=== PATIENT | male | born 1945 | race Caucasian/White ===

== ENCOUNTER 2016-11-09 10:01 | Inpatient (IN) | payer BC ==
[~2016-11-09] VITALS: Ht 170.2 cm; Wt 108.1 kg
[2016-11-09 10:09] VITALS: BP 146/63; PULSE 74; RESP 20; TEMP 97.9; O2SAT 97
[2016-11-09] MEDS ORDERED: SODIUM CHLORIDE 0.9% FLUSH 10 ML FLUSH IVF PRN (10:45)
--- NOTE | 2016-11-09 10:55 | PD ---
HPI Chief Complaint: Fall Time Seen by Provider: 10:18 Travel History International Travel<30 days: No Contact w/Intl Traveler<30days: No Traveled to known affect area: No History of Present Illness HPI Patient reports that he noticed at 5 AM when he woke up that he had some weakness and discoordination of the right arm and right leg. He denies numbness or paresthesia. No speech slurring. He reports history of CVA causing short term memory loss. He was able to ambulate in his house but when he went to sit down in a recliner he ended up slumping down to the ground. No head injury. No head or neck pain. He did hit his left lower rib cage and has rib pain. There is been some improvement of the arm and leg weakness but he still feels that is mild and present. Severity was moderate but now is mild. No alleviating factors. Duration is unknown but occurred sometime during the night. Does not qualify for stroke alert or TPA. PFSH Past Medical History Atrial Fibrillation: Yes Anxiety: Yes High Cholesterol: Yes Cerebrovascular Accident: Yes Diabetes: Yes Patient Takes Glucophage: Yes Diminished Hearing: Yes Hypertension: Yes Tetanus Vaccination: > 5 Years Influenza Vaccination: Yes Past Surgical History Eye Surgery: Yes (JONNIE CATARACT) Social History Alcohol Use: No Tobacco Use: No Substance Use: No Allergies-Medications (Allergen,Severity, Reaction): Coded Allergies: No Known Allergies (Unverified , 11/09/16) Reported Meds & Prescriptions Reported Meds & Active Scripts Active Reported Jennifer Root (Jennifer (Zingiber Officinalis)) 550 Mg Cap 550 Mg PO DAILY Ferrous Sulfate 325 Mg Tab 325 Mg PO DAILY [Multivitamin Silver] 1 PO DAILY Victoza Inj (Liraglutide Inj) 18 Mg/3 Ml Pen 0.6 Mg SQ DAILY Jardiance (Empagliflozin) 25 Mg Tab 25 Mg PO DAILY Digoxin 0.25 Mg Tab 0.25 Mg PO DAILY Sertraline (Sertraline HCl) 100 Mg Tab 100 Mg PO DAILY Glipizide XL (Glipizide) 5 Mg Hilary 5 Mg PO DAILY Take with breakfast or first main meal of the day Atenolol 25 Mg Tab 25 Mg PO DAILY Metformin (Metformin HCl) 1,000 Mg Tab 1,000 Mg PO BID With meals Donepezil 10 Mg Tab 10 Mg PO HS Lyrica (Pregabalin) 100 Mg Cap 100 Mg PO Lyrica (Pregabalin) 150 Mg Cap 150 Mg PO Atorvastatin (Atorvastatin Calcium) 40 Mg Tab 40 Mg PO HS Review of Systems General / Constitutional: No: Fever Eyes: No: Visual changes HENT: No: Headaches Cardiovascular: Positive: Irregular Rhythm, No: Chest Pain or Discomfort Respiratory: No: Shortness of Breath Gastrointestinal: No: Abdominal Pain Genitourinary: No: Dysuria Musculoskeletal: Positive: Weakness, Pain Skin: No Rash Neurologic: Positive: Weakness, Coordination Problem Psychiatric: No: Depression Endocrine: No: Polydipsia Hematologic/Lymphatic: No: Easy Bruising Physical Exam Narrative GENERAL: Well-nourished, well-developed patient in no apparent distress. SKIN: Focused skin assessment reveals no rash and nodules. Skin is Warm and dry. HEAD: Atraumatic. Normocephalic. EYES: Pupils equal and round. No scleral icterus. No injection or drainage. ENT: No nasal bleeding or discharge. Mucous membranes pink and moist. NECK: Trachea midline. No JVD. CARDIOVASCULAR: Irregularly irregular rhythm. No murmur appreciated. RESPIRATORY: No accessory muscle use. Clear to auscultation. Breath sounds equal bilaterally. GASTROINTESTINAL: Abdomen soft, non-tender, nondistended. Hepatic and splenic margins not palpable. MUSCULOSKELETAL: No obvious deformities. No clubbing. No cyanosis. No edema. NEUROLOGICAL: Awake and alert. No obvious cranial nerve deficits. Motor grossly within normal limits. Normal speech. If there is any motor weakness it is subtle. PSYCHIATRIC: Appropriate mood and affect; insight and judgment normal. Data Data Last Documented VS Vital Signs Date Time Temp Pulse Resp B/P Pulse Ox O2 Delivery O2 Flow Rate FiO2 11/09/16 12:02 63 20 152/76 93 Room Air 11/09/16 10:09 97.9 Orders Electrocardiogram (11/09/16 10:45) Prothrombin Time / Inr (Pt) (11/09/16 10:45) Act Partial Throm Time (Ptt) (11/09/16 10:45) Complete Blood Count With Diff (11/09/16 10:45) Basic Metabolic Panel (Bmp) (11/09/16 10:45) Ct Brain W/O Iv Contrast(Rout) (11/09/16 10:45) Chest, Single Ap (11/09/16 10:45) Ecg Monitoring (11/09/16 10:45) Iv Access Insert/Monitor (11/09/16 10:45) Oximetry (11/09/16 10:45) Blood Glucose (11/09/16 10:45) Sodium Chloride 0.9% Flush (Ns Flush) (11/09/16 10:45) Labs Laboratory Tests Test 11/09/16 11:11 White Blood Count 8.4 TH/MM3 Red Blood Count 5.13 MIL/MM3 Hemoglobin 14.2 GM/DL Hematocrit 43.6 % Mean Corpuscular Volume 85.0 FL Mean Corpuscular Hemoglobin 27.7 PG Mean Corpuscular Hemoglobin 32.6 % Concent Red Cell Distribution Width 15.0 % Platelet Count 161 TH/MM3 Mean Platelet Volume 11.3 FL Neutrophils (%) (Auto) 68.9 % Lymphocytes (%) (Auto) 18.4 % Monocytes (%) (Auto) 9.5 % Eosinophils (%) (Auto) 2.6 % Basophils (%) (Auto) 0.6 % Neutrophils # (Auto) 5.8 TH/MM3 Lymphocytes # (Auto) 1.5 TH/MM3 Monocytes # (Auto) 0.8 TH/MM3 Eosinophils # (Auto) 0.2 TH/MM3 Basophils # (Auto) 0.1 TH/MM3 CBC Comment DIFF FINAL Differential Comment Prothrombin Time 12.5 SEC Prothromb Time International 1.1 RATIO Ratio Activated Partial 26.8 SEC Thromboplast Time Sodium Level 142 MEQ/L Potassium Level 5.1 MEQ/L Chloride Level 106 MEQ/L Carbon Dioxide Level 28.1 MEQ/L Anion Gap 8 MEQ/L Blood Urea Nitrogen 19 MG/DL Creatinine 0.87 MG/DL Estimat Glomerular Filtration 87 ML/MIN Rate Random Glucose 175 MG/DL Calcium Level 9.1 MG/DL [facility] Medical Decision Making Medical Screen Exam Complete: Yes Emergency Medical Condition: Yes Medical Record Reviewed: Yes Differential Diagnosis CVA, TIA, rib contusion Narrative Course I have reviewed the patient's electronic medical record. Patient is never been here before Patient describes CVA/TIA type of symptoms with right sided weakness and discoordination. He presents out of the window for TPA or stroke alert as he woke up with these symptoms. He does have history of A. fib and is not sure if he takes any blood thinners. Neither he nor his home health aide know his medication list. IV placed Brain CT I reviewed his chest x-ray I reviewed his EKG Extended cardiac monitoring CBC Metabolic profile Coagulation studies Bari Sun MD November 09, 2016 10:55
--- NOTE | 2016-11-09 11:10 | RADRPT ---
EXAM DATE/TIME: 11/09/2016 10:46 [facility] COMPARISON: No previous studies available for comparison. INDICATIONS : Fell on floor pain left ribs. MEDICAL HISTORY : Stroke. Diabetes mellitus type I. SURGICAL HISTORY : None. ENCOUNTER: Initial ACUITY: 1 day PAIN SCORE: 7/10 LOCATION: Left chest FINDINGS: A single view of the chest demonstrates the lungs to be symmetrically aerated without evidence of mas s, infiltrate or effusion. The heart is mildly enlarged. Pulmonary vessels are normal in caliber. Ol d trauma involving the left proximal humerus. Bony structures are otherwise unremarkable. CONCLUSION: 1. Mild cardiomegaly without acute cardiopulmonary disease. 2. Suspected old trauma involving the proximal left humerus. Nestor Fields Jr., MD on November 09, 2016 at 11:07 Board Certified Radiologist. This report was verified electronically.
[2016-11-09 11:28] LABS: AUTOMATED NEUTROPHIL # 5.8 TH/MM3 (1.8-7.7); BASOPHIL # 0.1 TH/MM3 (0-0.2); BASOPHIL % 0.6 % (0.0-2.0); EOSINOPHIL # 0.2 TH/MM3 (0-0.4); EOSINOPHIL % 2.6 % (0.0-4.0); HEMATOCRIT 43.6 % (39.0-51.0); HEMO FLAGS DIFF FINAL; LYMPH % 18.4 % (9.0-44.0); LYMPHOCYTE # 1.5 TH/MM3 (1.0-4.8); MEAN CORPUSCULAR HEMOGLOBIN 27.7 PG (27.0-34.0); MEAN CORPUSCULAR HGB CONC 32.6 % (32.0-36.0); MONO % 9.5 % (0.0-8.0); NEUT % 68.9 % (16.0-70.0); PLATELET COUNT 161 TH/MM3 (150-450); RED BLOOD COUNT 5.13 MIL/MM3 (4.50-5.90); WHITE BLOOD COUNT 8.4 TH/MM3 (4.0-11.0)
[2016-11-09 11:42] LABS: APTT (PATIENT) 26.8 SEC (24.3-30.1); INTERNATIONAL NORMALIZED RATIO 1.1 RATIO; PROTHROMBIN TIME - PATIENT 12.5 SEC (9.8-11.6)
[2016-11-09] MEDS ORDERED: EMPA1TAB3 PO (11:42)
[2016-11-09] MEDS ORDERED: GING550C PO (11:42)
[2016-11-09] MEDS ORDERED: SERT-129 PO (11:42)
[2016-11-09] MEDS ORDERED: METF1000 PO (11:42)
[2016-11-09] MEDS ORDERED: LYRI150C PO (11:42)
[2016-11-09] MEDS ORDERED: ATEN25TA PO (11:42)
[2016-11-09] MEDS ORDERED: LYRI100C PO (11:42)
[2016-11-09] MEDS ORDERED: FERR325T PO (11:42)
[2016-11-09] MEDS ORDERED: DONE10TA7 PO (11:42)
[2016-11-09] MEDS ORDERED: ATOR40TA16 PO (11:42)
[2016-11-09] MEDS ORDERED: DIGO0.25 PO (11:42)
[2016-11-09] MEDS ORDERED: [UNRECOGNIZED DRUG - OTHER] PO (11:42)
[2016-11-09] MEDS ORDERED: VICT18IN SQ (11:42)
[2016-11-09] MEDS ORDERED: GLIP-157 PO (11:42)
[2016-11-09] MEDS ORDERED: DABI1CAP3 PO (11:42)
[2016-11-09 11:48] LABS: BICARBONATE 28.1 MEQ/L (21.0-32.0); POTASSIUM 5.1 MEQ/L (3.5-5.1)
[2016-11-09 11:57] VITALS: O2SAT 97
[2016-11-09 12:02] VITALS: BP 152/76; PULSE 63; RESP 20; O2SAT 93
--- NOTE | 2016-11-09 12:21 | RADRPT ---
EXAM DATE/TIME: 11/09/2016 11:51 [facility] COMPARISON: No previous studies available for comparison. INDICATIONS : Right sided weakness, numbness since 2AM RADIATION DOSE: 43.36 CTDIvol (mGy) MEDICAL HISTORY : Cardiovascular disease. Hypertension. Diabetes mellitus type 2. SURGICAL HISTORY : None. ENCOUNTER: Initial ACUITY: 1 day PAIN SCALE: 0/10 LOCATION: cranial TECHNIQUE: Multiple contiguous axial images were obtained of the head. Using automated exposure control and adj ustment of the mA and/or kV according to patient size, radiation dose was kept as low as reasonably a chievable to obtain optimal diagnostic quality images. FINDINGS: There is no evidence of acute cortical infarction, acute hemorrhage, mass effect or midline shift. Ol d infarct is present in the posterior right temporal lobe. There is old infarct involving the right b bernardino ganglia as well. Posterior fossa structures are unremarkable. No extra-axial fluid collections a re identified. CONCLUSION: 1. No evidence of acute intracranial pathology. No masses are identified. 2. Old infarcts as above Dewayne Montes MD on November 09, 2016 at 12:07 Board Certified Radiologist. This report was verified electronically.
[2016-11-09] MEDS ORDERED: ASPIRIN 325 MG TAB PO ONE (13:00)
[2016-11-09] MEDS ORDERED: SODIUM CHLOR 0.9% 1000 ML INJ 1,000 ML IV SCH (13:53)
[2016-11-09] MEDS ORDERED: NALOXONE HCL 0.4 MG/ML AMP IV PRN (14:00)
[2016-11-09] MEDS ORDERED: SODIUM CHLORIDE 0.9% FLUSH 10 ML FLUSH IV FLUSH PRN (14:00)
[2016-11-09] MEDS ORDERED: ONDANSETRON HCL 4 MG/2 ML VIAL IVP PRN (14:00)
[2016-11-09] MEDS ORDERED: ACETAMINOPHEN 325 MG TAB PO PRN (14:00)
[2016-11-09] MEDS ORDERED: GLUCAGON 1 MG/ML VIAL OTHER PRN ×2 (14:00→17:15)
[2016-11-09] MEDS ORDERED: ENALAPRILAT 1.25 MG/ML VIAL IV PRN (14:00)
[2016-11-09] MEDS ORDERED: DEXTROSE 50% IN WATER 50 ML VIAL(D50) IV PRN (14:00)
--- NOTE | 2016-11-09 15:13 | RADRPT ---
EXAM DATE/TIME: 11/09/2016 14:43 [facility] COMPARISON: No previous studies available for comparison. INDICATIONS : Cerebrovascular accident. MEDICAL HISTORY : Stroke. Hypercholesterolemia. Hypertension. A-fib. Diabetes. Anxiety. SURGICAL HISTORY : None. ENCOUNTER: Initial ACUITY: 1 day PAIN SCORE: 0/10 LOCATION: Bilateral pelvis PEAK SYSTOLIC VELOCITIES (cm/sec): ICA/CCA RATIO: Right: 0.8 Left: 1.1 ICA: Right: 71 Left: 73 CCA: Right: 88 Left: 69 ECA: Right: 49 Left: 65 VERTEBRAL: Right: 22 antegrade Left: 51 antegrade Elevated flow velocities and ICA/CCA ratios have been found to correlate with increased degrees of vessel stenosis, calculated as percentage of diameter relative to a normal segment of distal ICA/CCA FINDINGS: RIGHT CAROTID: No significant stenosis is visualized. The waveforms are within normal limits. LEFT CAROTID: No significant stenosis is visualized. The waveforms are within normal limits. VERTEBRAL ARTERIES: Antegrade flow is seen in both vertebral arteries. MISCELLANEOUS: None. CONCLUSION: Normal examination. Geronimo Black MD on November 09, 2016 at 15:11 Board Certified Radiologist. This report was verified electronically.
--- NOTE | 2016-11-09 15:32 | HHI.HP ---
HPI Service [facility] Primary Care Physician Non-Staff Admission Diagnosis TIA Diagnoses: Chief Complaint: right leg and arm weakness (Martha HoganCelina YODER) Travel History International Travel<30 Days: No Contact w/Intl Traveler <30 Da: No Traveled to Known Affected Are: No (Martha HoganCelina YODER) History of Present Illness This is a 71-year-old male with a history hypertension, diabetes, atrial fibrillation, hyperlipidemia, CVA, memory deficit possibly dementia. Patient presented to the emergency room with complaint of weakness to right upper and right lower extremity lack of coordination. Patient is a poor historian, patient is forgetful and requesting that I speak to his . No other family is at bedside. Per ER report and patient, patient woke up between 5 and 6 AM, he states that his right leg gave out in his right arm felt limp. He went to get up and try to hold onto a chair and fell to the ground. He denies any numbness tingling, no speech difficulty, no headache, double vision. His only complaint at this time is left-sided rib pain. He's had a CVA in the past but does not have any deficit. He has underlying history of atrial fibrillation, not on any anticoagulation. 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 Patient was evaluated in the emergency room, laboratory workup was essentially unremarkable. CT of the head was negative other than old CVA. Last Impressions Head CT 11/09/161044 Signed Impressions: Service Date/Time: October 11:51 - CONCLUSION: 1. No evidence of acute intracranial pathology. No masses are identified. 2. 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 Mild cardiomegaly without acute cardiopulmonary disease. 2. Suspected old trauma involving the proximal left humerus. Nestor Fields Jr., MD Carotid Artery Ultrasound 11/09/16 0000 Signed Impressions: Service Date/Time: October 14:43 - CONCLUSION: Normal examination. Geronimo Black MD Patient was given aspirin. He's evaluated in emergency room, he feels that his right hand is still not very coordinated. He denies any chest pain, shortness of breath, recent fever, chills. Indicates he has been doing well otherwise. Patient is admitted for further evaluation and treatment. (Martha Hogan) Review of Systems ROS Limitations: Poor Historian Neurologic: COMPLAINS OF: Localized weakness, Poor Balance (Martha Hogan) Past Family Social History Past Medical History Hypertension Hyperlipidemia Type 2 diabetes History CVA Memory problems, possible dementia Cataracts Anxiety Hard of hearing Past Surgical History Cataract surgery Reported Medications Reported Meds & Active Scripts Active Reported Jennifer Root (Jennifer (Zingiber Officinalis)) 550 Mg Cap 550 Mg PO DAILY Ferrous Sulfate 325 Mg Tab 325 Mg PO DAILY [Multivitamin Silver] 1 PO DAILY Victoza Inj (Liraglutide Inj) 18 Mg/3 Ml Pen 0.6 Mg SQ DAILY Jardiance (Empagliflozin) 25 Mg Tab 25 Mg PO DAILY Digoxin 0.25 Mg Tab 0.25 Mg PO DAILY Sertraline (Sertraline HCl) 100 Mg Tab 100 Mg PO DAILY Glipizide XL (Glipizide) 5 Mg Hilary 5 Mg PO DAILY Take with breakfast or first main meal of the day Atenolol 25 Mg Tab 25 Mg PO DAILY Metformin (Metformin HCl) 1,000 Mg Tab 1,000 Mg PO BID With meals Donepezil 10 Mg Tab 10 Mg PO HS Lyrica (Pregabalin) 100 Mg Cap 100 Mg PO Lyrica (Pregabalin) 150 Mg Cap 150 Mg PO Atorvastatin (Atorvastatin Calcium) 40 Mg Tab 40 Mg PO HS (Martha Hogan) Allergies: Coded Allergies: No Known Allergies (Unverified , 11/09/16) Active Ordered Medications Inpatient Medications Acetaminophen (Tylenol) 650 mg Q4H PRN PO TEMP > 100.4; Start 11/09/16 at 14:00 Aspirin (Aspirin) 325 mg DAILY PO ; Start 11/10/16 at 09:00 Aspirin 325 mg 325 mg ONCE ONCE PO Last administered on 11/09/16t 13:17; Start 11/09/16 at 13:00; Stop 11/09/16 at 13:01; Status DC Dextrose (D50w (Vial) Inj) 50 ml UNSCH PRN IV HYPOGLYCEMIA-SEE COMMENTS; Start 11/09/16 at 14:00 Enalaprilat (Vasotec Inj) 1.25 mg Q4H PRN IV For SBP > 220 or DBP > 120; Start 11/09/16 at 14:00 Glucagon (Glucagon Inj) 1 mg UNSCH PRN OTHER HYPOGLYCEMIA-SEE COMMENTS; Start 11/09/16 at 14:00 Insulin Aspart (NovoLOG SUPPLEMENTAL SCALE) 1 ACHS SLIDING SCALE SQ ; Start at 16:00 Naloxone HCl (Narcan Inj) 0.4 mg UNSCH PRN IV SEE LABEL COMMENTS; Start at 14:00 Ondansetron HCl (Zofran Inj) 4 mg Q6H PRN IVP NAUSEA OR VOMITING; Start at 14:00 Sodium Chloride (NS 1000 ml Inj) 1,000 ml @ 75 mls/hr [id number] IV ; Start at 13:53 Sodium Chloride (NS Flush) 2 ml BID IV FLUSH ; Start 11/09/16 at 21:00 Family History Positive for CAD Siblings Social History , lives with , has 3 grown daughters No ETOH No substance abuse No Smoking (Martha Hogan) Physical Exam Vital Signs Vital Signs Date Time Temp Pulse Resp B/P Pulse Ox O2 Delivery O2 Flow Rate FiO2 11/09/16 12:02 63 20 152/76 93 Room Air 11/09/16 11:57 97 Room Air 11/09/16 10:09 97.9 74 20 146/63 97 Physical Exam GENERAL: This is a well-nourished, well-developed patient, in no apparent distress. SKIN: No rashes, ecchymoses or lesions. Cool and dry. HEAD: Atraumatic. Normocephalic. No temporal or scalp tenderness. EYES: Pupils equal round and reactive. Extraocular motions intact. No scleral icterus. No injection or drainage. ENT: Nose without bleeding, purulent drainage or septal hematoma. Throat without erythema, tonsillar hypertrophy or exudate. Uvula midline. Airway patent. NECK: Trachea midline. No JVD or lymphadenopathy. Supple, nontender, no meningeal signs. CARDIOVASCULAR: S1-S2, irregularly irregular heart rate. Unable to detect any murmurs, rubs. RESPIRATORY: Clear to auscultation. Breath sounds equal bilaterally. No wheezes , rales, or rhonchi. GASTROINTESTINAL: Abdomen soft, non-tender, nondistended. No hepato-splenomegaly , or palpable masses. No guarding. MUSCULOSKELETAL: Extremities without clubbing, cyanosis, or edema. No joint tenderness, effusion, or edema noted. No calf tenderness. Negative Homans sign bilaterally. NEUROLOGICAL: Awake, alert oriented 3. Following commands. Poor historian. Slight ataxia with [id number] on the right upper extremity. Intact sensation upper and lower extremity. Laboratory Laboratory Tests Test 11/09/16 11:11 White Blood Count 8.4 Red Blood Count 5.13 Hemoglobin 14.2 Hematocrit 43.6 Mean Corpuscular Volume 85.0 Mean Corpuscular Hemoglobin 27.7 Mean Corpuscular Hemoglobin 32.6 Concent Red Cell Distribution Width 15.0 Platelet Count 161 Mean Platelet Volume 11.3 Neutrophils (%) (Auto) 68.9 Lymphocytes (%) (Auto) 18.4 Monocytes (%) (Auto) 9.5 Eosinophils (%) (Auto) 2.6 Basophils (%) (Auto) 0.6 Neutrophils # (Auto) 5.8 Lymphocytes # (Auto) 1.5 Monocytes # (Auto) 0.8 Eosinophils # (Auto) 0.2 Basophils # (Auto) 0.1 CBC Comment DIFF FINAL Differential Comment Prothrombin Time 12.5 Prothromb Time International 1.1 Ratio Activated Partial 26.8 Thromboplast Time Sodium Level 142 Potassium Level 5.1 Chloride Level 106 Carbon Dioxide Level 28.1 Anion Gap 8 Blood Urea Nitrogen 19 Creatinine 0.87 Estimat Glomerular Filtration 87 Rate Random Glucose 175 Calcium Level 9.1 (Martha Hogan) Result Diagram: 11/09/16 1111 11/09/16 1111 Imaging Last Impressions Head CT 11/09/16 1045 Signed Impressions: Service Date/Time: October 11:51 - CONCLUSION: 1. No evidence of acute intracranial pathology. No masses are identified. 2. 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 Mild cardiomegaly without acute cardiopulmonary disease. 2. Suspected old trauma involving the proximal left humerus. Nestor Fields Jr., MD (Martha Hogan) Assessment and Plan Problem List: (1) TIA (transient ischemic attack) (2) History of CVA (cerebrovascular accident) (3) Hyperlipidemia (4) HTN (hypertension) (5) Memory deficit (6) Atrial fibrillation Assessment and Plan Admit to Dr. Martinez 71-year-old male with history of prior CVA, atrial fibrillation, type 2 diabetes , hypertension hyperlipidemia. Patient presented to the emergency room with right upper and lower extremity weakness, fell to the floor. TIA, symptoms resolve, did not meet criteria for TPA. Patient with history of atrial fibrillation, not on any anticoagulation. -Continue with neuro checks every 4 hours -Head of bed down -Normal saline at 75 an hour -Consult neurology for evaluation We will obtain MRA MRI of the brain, 2-D echo, carotid ultrasound We will check lipid profile, hemoglobin A1c Continue with aspirin 325, PO daily -PT, OT eval History of A. fib, heart rate control CHADs 2 score 3. Continue cardiac telemetry Patient with chads 2 score of 3, does need anticoagulation. Defer to neurology -2-D echo pending Type 2 diabetes Accu-Cheks before meals and at bedtime with insulin therapy Hold metformin at this time Hemoglobin A1c pending Hyperlipidemia, stable Continue home medications in the morning Hyperlipidemia, stable Continue statins Lipid profile has been ordered Memory deficit, possibly dementia, patient on Donezepil Continue with Donezepil 10 mg by mouth daily at bedtime Home medications reviewed, initiated as indicated SCDs for DVT prophylaxis Plan of care has been discussed with the patient, attending and registered nurse. Further management of the patient will be dependent on the hospital course This patient was seen by myself and Dr. Martinez, this H&P is written on his behalf (Martha Hogan) Assessment and Plan pt seen and examined as above chart reviewed dw ER physician dw rn plan of care dw loading unit tool setter dw pt (Helena Martinez MD) Physician Certification 2 Midnight Certification Type: Admission for Inpatient Services Order for Inpatient Services The services are ordered in accordance with Medicare regulations or non- Medicare payer requirements, as applicable. In the case of services not specified as inpatient-only, they are appropriately provided as inpatient services in accordance with the 2-midnight benchmark. Estimated LOS (days): 2 days is the estimated time the patient will need to remain in the hospital, assuming treatment plan goals are met and no additional complications. Post-Hospital Plan: Not yet determined (Martha Hogan) Problem Qualifiers (1) TIA (transient ischemic attack): Qualified Code: G45.9 - Transient cerebral ischemia, unspecified type (2) Hyperlipidemia: Qualified Code: E78.5 - Hyperlipidemia, unspecified hyperlipidemia type (3) HTN (hypertension): Qualified Code: I10 - Essential hypertension (4) Atrial fibrillation: Qualified Code: I48.91 - Atrial fibrillation, unspecified type Martha Hogan November 09, 2016 15:32 Helena Martinez MD November 09, 2016 21:32
[2016-11-09] MEDS: INSULIN ASPART SUPPLEMENTAL SCALE SQ SCH ×3 (16:00→21:38)
[2016-11-09] MEDS ORDERED: SODIUM CHLORIDE 0.9% FLUSH 5 ML FLUSH IV FLUSH PRN (17:15)
[2016-11-09] MEDS ORDERED: DEXTROSE 50% IN WATER 50 ML VIAL(D50) IV PUSH PRN (17:15)
[2016-11-09] MEDS ORDERED: HEPARIN-D5W INJ 250 ML IV SCH (17:15)
[2016-11-09 17:20] VITALS: BP 138/79; PULSE 81; RESP 19; TEMP 95.3; O2SAT 96
[2016-11-09] MEDS: SODIUM CHLOR 0.9% 1000 ML INJ 1,000 ML IV SCH (18:00)
--- NOTE | 2016-11-09 18:05 | MB ---
cc: JIGNESH MARTINEZ M.D. DATE OF CONSULTATION: 11/09/2016 REASON FOR CONSULTATION: Transient ischemic attack. HISTORY OF PRESENT ILLNESS: Mr. Matos is a very nice 71 year-old male with history of atrial fibrillation. He has history of stroke many years ago from which he recovered. He was in his usual state of good health until yesterday when he suddenly developed severe weakness of the right arm and right leg. He states that the arm and leg became limp causing him to fall. He had no speech deficit, no other neurologic symptoms. His symptoms have since improved. He feels back to normal at the present time. He denies headaches, denies vertigo or double vision. PAST MEDICAL HISTORY: 1. History of atrial fibrillation. 2. Hypertension. 3. Type 2 diabetes. 4. History of stroke in the past. 5. Cataracts. 6. Anxiety. MEDICATIONS: 1. He takes Iron sulfate. 2. Jennifer root. 3. Victoza 4. 5. Digoxin. 6. Sertraline. 7. Glipizide. 8. Atenolol. 9. Metformin. 10. Lyrica 11. Daptazole 12. Atorvastatin ALLERGIES NONE KNOWN. SOCIAL HISTORY He denies alcohol use or drug use, or tobacco use. NEUROLOGICAL EXAMINATION: VITAL SIGNS: Reveal blood pressure 150/76, pulse 63, respirations 20, temperature 97.9 degrees. Higher cortical functions are normal. Cranial nerves II-XII are normal in detail. Motor exam he has got 5/5 strength of all groups in both upper and lower extremities. There is no drift, Cognitive skills within normal limits. Reflexes are symmetric. Sensory exams intact. There is no Babinski sign present. Cerebellar testing is normal. LABORATORY DATA CT scan of the brain; no acute change identified. There is no hemorrhage. There is an old stroke involving the right basal ganglia. Carotid ultrasound no sign of any significant stenosis. LABORATORY DATA The white count is 8400, hemoglobin 14.2, hematocrit 43% platelet count 161,000. His PT 12.5, INR 1.1, APTT 26.8. Sodium is 142, potassium 5.1, chloride 106, CO2 28.1, BUN is 19, creatinine 0.87, GFR is 87, glucose 175, calcium 9.1. EKG shows atrial fibrillation with a rate of about 67. IMPRESSION Left hemisphere Transient ischemic attack, suspect probably cardioembolic from atrial fibrillation. RECOMMENDATIONS Would recommend starting the patient on IV heparin at the present time. I would recommend as well long-term anticoagulation. We will also obtain an echocardiogram, lipid panel. MD CATHY Wisdom/pilar /5:06 PM /5:50 PM
[2016-11-09 20:00] VITALS: BP 120/81; PULSE 100; RESP 18; TEMP 98.5; O2SAT 97
[2016-11-09 20:46] LABS: INTERNATIONAL NORMALIZED RATIO 1.2 RATIO; PROTHROMBIN TIME - PATIENT 13.4 SEC (9.8-11.6)
[2016-11-09 20:47] LABS: APTT (PATIENT) 27.5 SEC (24.3-30.1)
[2016-11-09] MEDS ORDERED: SODIUM CHLORIDE 0.9% FLUSH 10 ML FLUSH IV FLUSH SCH (21:00)
[2016-11-09] MEDS: SODIUM CHLORIDE 0.9% FLUSH 5 ML FLUSH IV FLUSH SCH (21:00)
--- NOTE | 2016-11-09 21:22 | RADRPT ---
EXAM DATE/TIME: 11/09/2016 20:23 [facility] COMPARISON: No previous studies available for comparison. INDICATIONS : CVA. MEDICAL HISTORY : Hypertension. Diabetes mellitus type 2. SURGICAL HISTORY : None. ENCOUNTER: Initial ACUITY: 1 day PAIN SCORE: 0/10 LOCATION: Head. Please note a normal MRA of the brain does not entirely exclude the possibility of a small aneurysm, nor the possibility of distal intracranial vessel disease. TECHNIQUE: 3D time of flight MRA was performed. Source images, multiplanar STS MIP, and 3D volume MIP reconstru ctions were reviewed. FINDINGS: There is nonvisualization of the A1 segment of the left anterior cerebral artery. The right vertebra l artery is not visualized. There is poor visualization of the right posterior cerebral artery which arises from the anterior cir culation. There is no evidence for aneurysm or vascular displacement. CONCLUSION: Atherosclerotic intracranial vascular disease otherwise negative. Marino Henley MD FACR on November 09, 2016 at 21:18 Board Certified Radiologist. This report was verified electronically.
[2016-11-09] MEDS: DONEPEZIL HCL 5 MG TAB PO SCH (21:26)
[2016-11-09] MEDS: ATORVASTATIN 40 MG TAB PO SCH (21:26)
--- NOTE | 2016-11-09 21:42 | RADRPT ---
EXAM DATE/TIME: 11/09/2016 20:23 [place] COMPARISON: No previous studies available for comparison. INDICATIONS : CVA. CONTRAST: 20 cc Omniscan (gadodiamide) IV MEDICAL HISTORY : Hypertension. Diabetes mellitus type 2. SURGICAL HISTORY : None. ENCOUNTER: Subsequent ACUITY: 1 day PAIN SCORE: 0/10 LOCATION: Cranial TECHNIQUE: Multiplanar, multisequence MRI of the brain was performed both prior to and following the administration of paramagnetic contrast. FINDINGS: There is moderate central and cortical atrophy. There is a small focal area of restric tree diffusion high in the right centrum semiovale. Old infarct is seen in the left parietal occipital region. Moderate periventricular right matter ch anges are noted. Midline structures are intact. There are no extra-axial fluid collections appreciated. Following intravenous administration of Gadolinium there is no abnormal contrast enhancement. Major vascular structures are intact. CONCLUSION: Acute infarct high in the left parietal occipital region involving a single gyrus, ot herwise negative. Marino Henley MD FACR on November 09, 2016 at 21:36 Board Certified Radiologist. This report was verified electronically.
--- NOTE | 2016-11-09 22:00 | MB ---
cc: NEENA CLEVELAND MD DATE OF CONSULTATION 11/09/16 HISTORY OF PRESENT ILLNESS Mr. Matos is a very pleasant 71 year old white male with history of atrial fibrillation and stroke. He was on full anticoagulation in the past but was taken off his blood thinners. He presented with right arm and right leg severe weakness which resulted in a fall. He has not had any chest pain or shortness of breath. He has had significant improvement of his symptoms. PAST MEDICAL HISTORY 1. Atrial fibrillation 2. Stroke 3. Hypertension 4. Type 2 Diabetes mellitus 5. Anxiety 6. Cataract surgery MEDICATIONS 1. Atorvastatin 3. Lyrica 4. Metformin 5. Atenolol 6. Glipizide 7. Sertraline 8. Digoxin 9. Victoza 10. Jennifer root 11. Iron sulfate ALLERGIES None. SOCIAL HISTORY The patient does not smoke. He does not drink alcohol. He is . FAMILY HISTORY Positive for heart disease. REVIEW OF SYSTEMS Otherwise negative. PHYSICAL EXAMINATION VITAL SIGNS: Blood pressure 138/79, pulse 81 and irregular. HEENT: Negative, 2+ carotid upstrokes, no bruits. LUNGS: Clear. HEART: Irregular irregular with no murmurs, rubs or gallops ABDOMEN: Soft, no bruits. EXTREMITIES: Without edema, 2+ distal pulses. NEUROLOGIC: Grossly nonfocal. CARDIOLOGY STUDIES Electrocardiogram was reviewed and showed atrial fibrillation with controlled ventricular response, normal axis, right bundle branch block. LABORATORY DATA Hemoglobin 14.2, potassium 5.1, creatinine 0.9. DIAGNOSES 1. Transient ischemic attack 2. Chronic atrial fibrillation 3. Hypertension 4. Type 2 diabetes mellitus DISPOSITION Mr. Matos has history of chronic atrial fibrillation. He presented with transient ischemic attack. His CHADS VASC score is significantly elevated. I recommend full anticoagulation. I recommend to switch him from IV heparin to a novel anticoagulant due to his high risk of embolic cerebrovascular accident. I recommend continuing aggressive modification of his cardiac risk factors. His atrial fibrillation rate is well controlled. We will obtain echocardiogram to evaluate for cardiac source of emboli. I will follow him for cardiology during his hospitalization. Neena Cleveland MD OMikki/ /7:56 PM /9:48 PM MTDYvan
[2016-11-09 22:04] LABS: HEMATOCRIT 46.2 % (39.0-51.0); MEAN CELL VOLUME 85.4 FL (80.0-100.0); MEAN CORPUSCULAR HEMOGLOBIN 27.3 PG (27.0-34.0); PLATELET COUNT 159 TH/MM3 (150-450); RED BLOOD COUNT 5.41 MIL/MM3 (4.50-5.90); RED CELL DISTRIBUTION WIDTH 14.9 % (11.6-17.2); REVIEW FLAG FINAL
[2016-11-09 22:28] LABS: HEMOGLOBIN A1a 1.1 %; HEMOGLOBIN A1b 2.5 %; HEMOGLOBIN LA1C 2.3 %; HEMOGLOBIN P3 4.2 %
[2016-11-09] MEDS ORDERED: GADODIAMIDE PF 287 MG/ML 20 ML VIAL (for RAD MRI) IV ONE (22:38)
[2016-11-10] VITALS (7 sets, daily range): BP systolic 112–130; BP diastolic 60–75; PULSE 66–99; RESP 17–20; TEMP 95.8–98.4; O2SAT 95–99
[2016-11-10] MEDS: PREGABALIN 75 MG CAP PO SCH ×2 (01:14→20:45)
[2016-11-10 04:08] LABS: APTT (PATIENT) 44.2 SEC (24.3-30.1)
[2016-11-10 04:32] LABS: HDL CHOLESTEROL 29.6 MG/DL (40.0-60.0)
[2016-11-10] MEDS: INSULIN ASPART SUPPLEMENTAL SCALE SQ SCH ×4 (06:40→20:20)
[2016-11-10] MEDS: SODIUM CHLOR 0.9% 1000 ML INJ 1,000 ML IV SCH ×2 (08:18→23:11)
--- NOTE | 2016-11-10 08:50 | HHI.PR ---
Review/Management Diagnosis left parietal CVA--probably cardioembolic atrial fibrillation Plan continue iv heparin for now. Change to po anticoagulant which Dr Cleveland would recommend f/u echo cardiogram. Diagnosis/Plan: Subjective Subjective Comments No acute events reported He still feels weak right arm but improved Dr Antonio note is appreciated. Patients states he was previously on xarelto, although he may have missed 1 or 2 doses a couple of weeks ago. She states he was compliant with it up until this event occurred Active Medications Current Medications Medications (Trade) Dose Ordered Sig/Soto Route Start Time Stop Time Status Last Admin (Tylenol) 650 mg Q4H PRN PO 11/09/16 14:00 (Zofran Inj) 4 mg Q6H PRN IVP 11/09/16 14:00 (Narcan Inj) 0.4 mg UNSCH PRN IV 11/09/16 14:00 (Vasotec Inj) 1.25 mg Q4H PRN IV 11/09/16 14:00 (Tenormin) 25 mg DAILY PO 11/10/16 09:00 (Lipitor) 40 mg HS PO 11/09/16 21:00 11/09/16 21:26 (Lanoxin) 0.25 mg DAILY PO 11/10/16 09:00 (Aricept) 10 mg HS PO 11/09/16 21:00 11/09/16 21:26 (Zoloft) 100 mg DAILY PO 11/10/16 09:00 (Glucotrol) 2.5 mg BID@08,17 PO 11/10/16 08:00 (Pill Splitter) 1 ea UNSCH PRN OTHER 11/10/16 09:00 (NS Flush) 2 ml BID IV FLUSH 11/09/16 21:00 11/09/16 21:00 IV Flush 2 ml 2 ml UNSCH PRN IV FLUSH 11/09/16 17:15 (NS 1000 ml Inj) 1,000 ml @ 70 mls/hr [id number] IV 11/09/16 18:00 11/09/16 18:00 (NovoLOG SUPPLEMENTAL SCALE) 1 ACHS SQ 11/09/16 21:00 (D50w (Vial) Inj) 50 ml UNSCH PRN IV PUSH 11/09/16 17:15 Glucagon 1 mg 1 mg UNSCH PRN OTHER 11/09/16 17:15 (Heparin-D5W Inj) 250 ml @ 0 mls/hr TITRATE IV 11/09/16 17:15 11/09/16 21:39 (Lyrica) 150 mg HS PO 11/10/16 00:00 11/10/16 01:14 Allergies Allergies Coded Allergies No Known Allergies (Unverified11/09/16) Exam I&O / VS Vital Signs Date Time Temp Pulse Resp B/P Pulse Ox O2 Delivery O2 Flow Rate FiO2 11/10/16 07:40 95.8 76 17 112/74 99 11/10/16 04:02 18 11/10/16 04:00 97.9 82 20 129/70 95 11/10/16 00:00 97.0 97 18 122/75 98 11/09/16 20:00 98.5 100 18 120/81 97 11/09/16 17:20 95.3 81 19 138/79 96 11/09/16 12:02 63 20 152/76 93 Room Air 11/09/16 11:57 97 Room Air 11/09/16 10:09 97.9 74 20 146/63 97 Exam Comments alert, oriented, speech normal CN 2-12 dashawn 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 5/5 all other muscle groups BUE and BLE Objective Radiology Results MRI brain---shows infarct left high parietal area carotid US--no stenosis Micro and Labs Laboratory Tests Test 11/09/16 11/09/16 11/09/16 11/10/16 11:11 20:03 21:49 03:41 White Blood Count 8.4 10.0 Red Blood Count 5.13 5.41 Hemoglobin 14.2 14.8 Hematocrit 43.6 46.2 Mean Corpuscular Volume 85.0 85.4 Mean Corpuscular Hemoglobin 27.7 27.3 Mean Corpuscular Hemoglobin 32.6 32.0 Concent Red Cell Distribution Width 15.0 14.9 Platelet Count 161 159 Mean Platelet Volume 11.3 11.0 Neutrophils (%) (Auto) 68.9 Lymphocytes (%) (Auto) 18.4 Monocytes (%) (Auto) 9.5 Eosinophils (%) (Auto) 2.6 Basophils (%) (Auto) 0.6 Neutrophils # (Auto) 5.8 Lymphocytes # (Auto) 1.5 Monocytes # (Auto) 0.8 Eosinophils # (Auto) 0.2 Basophils # (Auto) 0.1 CBC Comment DIFF FINAL Differential Comment Prothrombin Time 12.5 13.4 Prothromb Time International 1.1 1.2 Ratio Activated Partial 26.8 27.5 44.2 Thromboplast Time Sodium Level 142 Potassium Level 5.1 Chloride Level 106 Carbon Dioxide Level 28.1 Anion Gap 8 Blood Urea Nitrogen 19 Creatinine 0.87 Estimat Glomerular Filtration 87 Rate Random Glucose 175 Hemoglobin A1c 8.4 Calcium Level 9.1 Test 11/10/16 03:51 Triglycerides Level 195 Cholesterol Level 82 LDL Cholesterol 13 HDL Cholesterol 29.6 Cholesterol/HDL Ratio 2.77 Hai Chao PhD November 10, 2016 08:50
[2016-11-10] MEDS: DIGOXIN 0.25 MG TAB PO SCH (09:00)
[2016-11-10] MEDS ORDERED: ASPIRIN 325 MG TAB PO SCH (09:00)
[2016-11-10] MEDS: SODIUM CHLORIDE 0.9% FLUSH 5 ML FLUSH IV FLUSH SCH ×2 (09:00→20:20)
[2016-11-10] MEDS ORDERED: PILL SPLITTER OTHER PRN (09:00)
[2016-11-10] MEDS: ATENOLOL 25 MG TAB PO SCH (09:13)
[2016-11-10] MEDS: SERTRALINE HCL 100 MG TAB PO SCH (09:13)
[2016-11-10] MEDS: glipiZIDE 5 MG TAB PO SCH ×2 (09:13→17:22)
--- NOTE | 2016-11-10 09:37 | HHI.PR ---
Subjective Subjective Remarks no neuro changes awake, oriented x 3 forgetful no fever no cp no sob at bsd, indicates pt. was on Pradaxa for many years after first stroke then was changed to Xarelto after insurance issues. May have missed a dose or more in the last 2 weeks pt. has poor memory since stroke Review of Systems Constitutional Constitutional Remarks 12 point ROS completed, unreliable Vitals/Results Vital Signs Vital Signs Date Time Temp Pulse Resp B/P Pulse Ox O2 Delivery O2 Flow Rate FiO2 11/10/16 07:40 95.8 76 17 112/74 99 11/10/16 04:02 18 11/10/16 04:00 97.9 82 20 129/70 95 11/10/16 00:00 97.0 97 18 122/75 98 11/09/16 20:00 98.5 100 18 120/81 97 11/09/16 17:20 95.3 81 19 138/79 96 11/09/16 12:02 63 20 152/76 93 Room Air 11/09/16 11:57 97 Room Air 11/09/16 10:09 97.9 74 20 146/63 97 CBC/BMP: 11/09/16 2149 11/09/16 1111 Lab Results Laboratory Tests Test 11/09/16 11/09/16 11/09/16 11/10/16 11:11 20:03 21:49 03:41 White Blood Count 8.4 TH/MM3 10.0 TH/MM3 Red Blood Count 5.13 MIL/MM3 5.41 MIL/MM3 Hemoglobin 14.2 GM/DL 14.8 GM/DL Hematocrit 43.6 % 46.2 % Mean Corpuscular Volume 85.0 FL 85.4 FL Mean Corpuscular Hemoglobin 27.7 PG 27.3 PG Mean Corpuscular Hemoglobin 32.6 % 32.0 % Concent Red Cell Distribution Width 15.0 % 14.9 % Platelet Count 161 TH/MM3 159 TH/MM3 Mean Platelet Volume 11.3 FL 11.0 FL Neutrophils (%) (Auto) 68.9 % Lymphocytes (%) (Auto) 18.4 % Monocytes (%) (Auto) 9.5 % Eosinophils (%) (Auto) 2.6 % Basophils (%) (Auto) 0.6 % Neutrophils # (Auto) 5.8 TH/MM3 Lymphocytes # (Auto) 1.5 TH/MM3 Monocytes # (Auto) 0.8 TH/MM3 Eosinophils # (Auto) 0.2 TH/MM3 Basophils # (Auto) 0.1 TH/MM3 CBC Comment DIFF FINAL Differential Comment Prothrombin Time 12.5 SEC 13.4 SEC Prothromb Time International 1.1 RATIO 1.2 RATIO Ratio Activated Partial 26.8 SEC 27.5 SEC 44.2 SEC Thromboplast Time Sodium Level 142 MEQ/L Potassium Level 5.1 MEQ/L Chloride Level 106 MEQ/L Carbon Dioxide Level 28.1 MEQ/L Anion Gap 8 MEQ/L Blood Urea Nitrogen 19 MG/DL Creatinine 0.87 MG/DL Estimat Glomerular Filtration 87 ML/MIN Rate Random Glucose 175 MG/DL Hemoglobin A1c 8.4 % Calcium Level 9.1 MG/DL Test 11/10/16 03:51 Triglycerides Level 195 MG/DL Cholesterol Level 82 MG/DL LDL Cholesterol 13 MG/DL HDL Cholesterol 29.6 MG/DL Cholesterol/HDL Ratio 2.77 RATIO Physical Exam General General Appearance: Well Developed, Comfortable, Obese Eyes Eye Exam: Pupils Equal, Pupils Reactive Ears & Nose Ears & Nose Exam: Nasal Mucosa [place] Throat Throat Exam: Oral Mucosa [place] & Moist Neck Neck Exam: Neck Supple, Trachea Midline Pulmonary Resp Exam: Clear Bilaterally Cardiology CV Exam: Regular, Good Perfusion, Irregular, Arrhythmia Gastrointestinal/Abdomen GI Exam: Soft, Non-Tender, Bowel Sounds Present, Non-Distended Integumentary Skin Exam: Clear, Warm, Dry Extremeties Extremities Exam: No Edema, Pedal Pulses Palpable Neurologic Neuro Exam: Alert, Awake, Speech Clear, Moving All Extremities, No Focal Deficits Psychiatric Psych Exam: Appropriate Responses VTE Prophylaxis VTE Prophylaxis Meds: Heparin Assessment/Plan Problem List: (1) CVA (cerebral vascular accident) Plan: left parietal occipital (2) TIA (transient ischemic attack) (3) Hyperlipidemia (4) History of CVA (cerebrovascular accident) (5) Atrial fibrillation (6) HTN (hypertension) (7) Memory deficit Assessment/Plan 71-year-old male with history of prior CVA, atrial fibrillation, type 2 diabetes , hypertension hyperlipidemia. Patient presented to the emergency room with right upper and lower extremity weakness, fell to the floor. TIA, symptoms resolve, did not meet criteria for TPA. Patient with history of atrial fibrillation, was Xarelto, may have missed some doses. Acute CVA-left parietal occipital infarct. -Continue with neuro checks every 4 hours -Head of bed down -Normal saline at 75 an hour -Consult neurology for evaluation-input appreciated. Card consult recommended MRI of the brain-left parietal infarct. --2-D echo pending. CUS no stenosis. lipid profile results noted, continue statin -hemoglobin A1c 8.6, needs improved control Continue with aspirin 325, PO daily -started on heparin gtt, defer anticoagulation to Dr. Cleveland. Pt. was on Xarelto. -PT, OT eval-recommend SNF History of A. fib, heart rate control CHADs 2 score 3. Continue cardiac telemetry Patient with chads 2 score of 3, does need anticoagulation. Defer to neurology -2-D echo pending Type 2 diabetes Accu-Cheks before meals and at bedtime with insulin therapy Hold metformin at this time Hemoglobin A1c 8.6, poorly control. Needs to lose weight Obesity -needs to lose weight, d/w pt and portion [employer] activity. Hyperlipidemia, stable Continue home medications in the morning -lipid profile done Hyperlipidemia, stable Continue statins Lipid profile has been ordered Memory deficit, possibly dementia, patient on Donezepil and prior CVA. Continue with Donezepil 10 mg by mouth daily at bedtime continue with Heparin gtt for DVT prophylaxis SCDs for DVT prophylaxis CM consult for discharge planning, SNF vs CIR Spoke to , she is agreeable with rehab placement D/W RN D/W pt and D/W Dr. Martinez D/W CM This patient was seen by myself and Dr. Martinez, this note is written on his behalf Problem Qualifiers (1) CVA (cerebral vascular accident): (2) TIA (transient ischemic attack): Qualified Code: G45.9 - Transient cerebral ischemia, unspecified type (3) Hyperlipidemia: Qualified Code: E78.5 - Hyperlipidemia, unspecified hyperlipidemia type (4) Atrial fibrillation: Qualified Code: I48.91 - Atrial fibrillation, unspecified type (5) HTN (hypertension): Qualified Code: I10 - Essential hypertension Martha Hogan November 10, 2016 09:37
[2016-11-10 13:00] LABS: APTT (PATIENT) 43.6 SEC (24.3-30.1)
--- NOTE | 2016-11-10 14:58 | EC ---
Study Study Date:11/10/2016 STUDY CONCLUSIONS SUMMARY - Left ventricle: The cavity size was normal. Wall thickness was normal. Systolic function was normal. The estimated ejection fraction was in the range of 50% to 55%. Wall motion was normal; there were no regional wall motion abnormalities. - Mitral valve: Mild regurgitation. - Tricuspid valve: Mild-moderate regurgitation. If LV function is below 40, please consider prescribing an ACEI or ARB or document rationale for non-use. PROCEDURE DATA STUDY STATUS: Elective. Procedure: Transthoracic echocardiography. Image quality was good. Scanning was performed from the parasternal, apical, and subcostal acoustic windows. Study completion: The patient tolerated the procedure well. Transthoracic echocardiography. M-mode, complete 2D, complete spectral Doppler, and color Doppler. Height: Height: 67in. Weight: Weight: 241.5lb. Body mass index: BMI: 37.9kg/m^2. Body surface area: BSA: 2.19m^2. Patient status: Inpatient. CARDIAC ANATOMY LEFT VENTRICLE: The cavity size was normal. Wall thickness was normal. Systolic function was normal. The estimated ejection fraction was in the range of 50% to 55%. Wall motion was normal; there were no regional wall motion abnormalities. AORTIC VALVE: Trileaflet; normal thickness, mildly calcified leaflets. Doppler: Transvalvular velocity was within the normal range. There was no stenosis. No regurgitation. AORTA: Aortic root: The aortic root was normal in size. MITRAL VALVE: Structurally normal valve. Doppler: Transvalvular velocity was within the normal range. There was no evidence for stenosis. Mild regurgitation. LEFT ATRIUM: The atrium was normal in size. RIGHT VENTRICLE: The cavity size was normal. Wall thickness was normal. PULMONIC VALVE: Doppler: Transvalvular velocity was within the normal range. There was no evidence for stenosis. No regurgitation. TRICUSPID VALVE: Structurally normal valve. Doppler: Transvalvular velocity was within the normal range. Mild-moderate regurgitation. PULMONARY ARTERY: The main pulmonary artery was normal-sized. Systolic pressure was within the normal range. RIGHT ATRIUM: The atrium was normal in size. PERICARDIUM: There was no pericardial effusion. SYSTEMIC VEINS: Inferior vena cava: The vessel was normal in size. Patient weight: 241.5lb _Ejection fraction:_ 65-75% _Fractional shortening:_ 32% up to 5Kg 5-11.5Kg 11.6-22.9Kg 23-45Kg 45-57Kg Aortic Root 7-13 <17 13-22 17-27 17-27 LA diam 6-13 <23 24-38 33-47 37-40 RVID 10-17 7-15 7-15 7-18 8-17 LVIDd 12-22 <32 24-38 33-47 37-40 LVPW 2-4 3-6 5-7 6-8 7-8 IVS 2-4 3-6 5-7 6-8 7-8 BASIC MEASUREMENTS ADULT NORMAL Left ventricle LV internal dimension, ED, chordal level, 43 mm 43-52 PLAX LV internal dimension, ES, chordal level, 34.1 mm 23-38 PLAX Fractional shortening, chordal level, PLAX *21 % >29 LV posterior wall thickness, ED 6.78 mm IVS/LVPW ratio, ED 1.26 <1.3 Ventricular septum Septal thickness, ED 8.55 mm Aortic valve Leaflet separation 25 mm 15-26 Left atrium Anterior-posterior dimension 46 mm Anterior-posterior dimension index 2.1 cm/m^2 <2.2 Right ventricle RV internal dimension, ED, PLAX 21.9 mm 19-38 BASIC MEASUREMENTS ADULT NORMAL Aortic valve Leaflet separation 25 mm 15-26 Aorta Root diameter, ED 36 mm 20-37 DOPPLER MEASUREMENTS ADULT NORMAL Aortic valve Peak velocity, S 137 cm/s Mitral valve Maximal regurgitant velocity 440 cm/s Tricuspid valve Regurgitant peak velocity 313 cm/s Peak RV-RA gradient, S 39 mm Hg Maximal regurgitant velocity 313 cm/s LEGEND: Mean values are shown as u=mean value. Asterisk (*) alex values outside specified normal range. Prepared and signed by Hair Coombs [id number]
[2016-11-10] MEDS: RIVAROXABAN 20 MG TAB PO SCH (15:21)
--- NOTE | 2016-11-10 15:25 | PD.CARD.PN ---
Subjective Subjective Remarks No CP or SOB, still weak Objective Medications Current Medications Medications (Trade) Dose Ordered Sig/Soto Route Start Time Stop Time Status Last Admin (Tylenol) 650 mg Q4H PRN PO 11/09/16 14:00 (Zofran Inj) 4 mg Q6H PRN IVP 11/09/16 14:00 (Narcan Inj) 0.4 mg UNSCH PRN IV 11/09/16 14:00 (Vasotec Inj) 1.25 mg Q4H PRN IV 11/09/16 14:00 (Tenormin) 25 mg DAILY PO 11/10/16 09:00 11/10/16 09:13 (Lipitor) 40 mg HS PO 11/09/16 21:00 11/09/16 21:26 (Lanoxin) 0.25 mg DAILY PO 11/10/16 09:00 (Aricept) 10 mg HS PO 11/09/16 21:00 11/09/16 21:26 (Zoloft) 100 mg DAILY PO 11/10/16 09:00 11/10/16 09:13 (Glucotrol) 2.5 mg BID@08,17 PO 11/10/16 08:00 11/10/16 09:13 (Pill Splitter) 1 ea UNSCH PRN OTHER 11/10/16 09:00 (NS Flush) 2 ml BID IV FLUSH 11/09/16 21:00 11/10/16 09:00 IV Flush 2 ml 2 ml UNSCH PRN IV FLUSH 11/09/16 17:15 (NS 1000 ml Inj) 1,000 ml @ 70 mls/hr [id number] IV 11/09/16 18:00 11/10/16 08:18 (NovoLOG SUPPLEMENTAL SCALE) 1 ACHS SQ 11/09/16 21:00 11/10/16 11:00 (D50w (Vial) Inj) 50 ml UNSCH PRN IV PUSH 11/09/16 17:15 (Glucagon Inj) 1 mg UNSCH PRN OTHER 11/09/16 17:15 (Lyrica) 150 mg HS PO 11/10/16 00:00 11/10/16 01:14 (Xarelto) 20 mg DAILY PO 11/10/16 13:30 Vital Signs / I&O Vital Signs Date Time Temp Pulse Resp B/P Pulse Ox O2 Delivery O2 Flow Rate FiO2 11/10/16 11:50 97.0 66 17 130/60 98 11/10/16 07:40 95.8 76 17 112/74 99 11/10/16 04:02 18 11/10/16 04:00 97.9 82 20 129/70 95 11/10/16 00:00 97.0 97 18 122/75 98 11/09/16 20:00 98.5 100 18 120/81 97 11/09/16 17:20 95.3 81 19 138/79 96 Physical Exam GENERAL: In NAD SKIN: Warm and dry. HEAD: Normocephalic. EYES: No scleral icterus. No injection or drainage. NECK: Supple, trachea midline. No JVD or lymphadenopathy. CARDIOVASCULAR: Irregular rate and rhythm without murmurs, gallops, or rubs. RESPIRATORY: Breath sounds equal bilaterally. No accessory muscle use. GASTROINTESTINAL: Abdomen soft, non-tender, nondistended. MUSCULOSKELETAL: No cyanosis, or edema. Laboratory Laboratory Tests Test 11/09/16 11/09/16 11/10/16 11/10/16 20:03 21:49 03:41 03:51 Prothrombin Time 13.4 SEC Prothromb Time International 1.2 RATIO Ratio Activated Partial 27.5 SEC 44.2 SEC Thromboplast Time White Blood Count 10.0 TH/MM3 Red Blood Count 5.41 MIL/MM3 Hemoglobin 14.8 GM/DL Hematocrit 46.2 % Mean Corpuscular Volume 85.4 FL Mean Corpuscular Hemoglobin 27.3 PG Mean Corpuscular Hemoglobin 32.0 % Concent Red Cell Distribution Width 14.9 % Platelet Count 159 TH/MM3 Mean Platelet Volume 11.0 FL Triglycerides Level 195 MG/DL Cholesterol Level 82 MG/DL LDL Cholesterol 13 MG/DL HDL Cholesterol 29.6 MG/DL Cholesterol/HDL Ratio 2.77 RATIO Test 11/10/16 12:18 Activated Partial 43.6 SEC Thromboplast Time Imaging Last Impressions Head CT 11/09/16 1045 Signed Impressions: Service Date/Time: October 11:51 - CONCLUSION: 1. No evidence of acute intracranial pathology. No masses are identified. 2. 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 Mild cardiomegaly without acute cardiopulmonary disease. 2. Suspected old trauma involving the proximal left humerus. Nestor Fields Jr., MD Head Magnetic Resonance Angiography 11/09/16 Signed Impressions: Service Date/Time: October 20:23 - CONCLUSION: Atherosclerotic intracranial vascular disease otherwise negative. Marino Henley MD FACR Carotid Artery Ultrasound 11/09/16 Signed Impressions: Service Date/Time: October 14:43 - CONCLUSION: Normal examination. Geronimo Black MD Brain MRI 11/09/16 Signed Impressions: Service Date/Time: October 20:23 - CONCLUSION: Acute infarct high in the left parietal occipital region involving a single gyrus, otherwise negative. Marino Henley MD FACR Assessment and Plan Problem List: (1) TIA (transient ischemic attack) (2) Atrial fibrillation (3) HTN (hypertension) (4) Hyperlipidemia Assessment and Plan Continue current program including anticoagulation with Xarelto. Continue rate control of atrial fibrillation. Increase activity. PT. Problem Qualifiers (1) TIA (transient ischemic attack): Qualified Code: G45.9 - Transient cerebral ischemia, unspecified type (2) Atrial fibrillation: Qualified Code: I48.91 - Atrial fibrillation, unspecified type (3) HTN (hypertension): Qualified Code: I10 - Essential hypertension (4) Hyperlipidemia: Qualified Code: E78.5 - Hyperlipidemia, unspecified hyperlipidemia type Neena Cleveland MD November 10, 2016 15:25
[2016-11-10] MEDS: DONEPEZIL HCL 5 MG TAB PO SCH (20:45)
[2016-11-10] MEDS: ATORVASTATIN 40 MG TAB PO SCH (20:45)
--- NOTE | 2016-11-10 21:59 | EKG ---
Date Performed: 11/09/2016 Time Performed: 11:09:16 PTAGE: 71 years EKG: ATRIAL FIBRILLATION INDETERMINATE AXIS RIGHT BUNDLE BRANCH BLOCK MODERATE T-WAVE ABNORMALIT Y, CONSIDER LATERAL ISCHEMIA ABNORMAL ECG NO PREVIOUS TRACING DOCTOR: Roberto Chinchilla Interpretating Date/Time 11/10/2016 21:59:11
[2016-11-11] VITALS (7 sets, daily range): BP systolic 122–158; BP diastolic 68–91; PULSE 68–96; RESP 18–20; TEMP 96.2–97.2; O2SAT 93–98
[2016-11-11] MEDS: INSULIN ASPART SUPPLEMENTAL SCALE SQ SCH ×4 (06:40→20:32)
[2016-11-11] MEDS: SODIUM CHLORIDE 0.9% FLUSH 5 ML FLUSH IV FLUSH SCH ×2 (09:00→20:29)
[2016-11-11] MEDS: SERTRALINE HCL 100 MG TAB PO SCH (09:19)
[2016-11-11] MEDS: RIVAROXABAN 20 MG TAB PO SCH (09:19)
[2016-11-11] MEDS: DIGOXIN 0.25 MG TAB PO SCH (09:19)
[2016-11-11] MEDS: ATENOLOL 25 MG TAB PO SCH (09:20)
[2016-11-11] MEDS: glipiZIDE 5 MG TAB PO SCH ×2 (09:20→17:31)
--- NOTE | 2016-11-11 09:48 | HHI.PR ---
Subjective Subjective Remarks no neuro changes awake, oriented x 3 forgetful no fever no cp no sob has no complaints off Heparin now Review of Systems Constitutional Constitutional Remarks 12 point ROS completed, unreliable Vitals/Results Intake & Output 11/10/16 11/10/16 11/11/16 15:00 23:00 07:00 Intake Total 560 ml 560 ml Balance 560 ml 560 ml Intake IV Total 560 ml 560 ml # Voids 2 2 # Bowel Movements 2 Vital Signs Vital Signs Date Time Temp Pulse Resp B/P Pulse Ox O2 Delivery O2 Flow Rate FiO2 11/11/16 08:00 96.2 80 20 158/78 96 11/11/16 00:00 97.0 86 18 122/74 98 11/10/16 23:00 68 11/10/16 21:45 20 11/10/16 19:30 98.4 72 20 119/63 97 11/10/16 15:40 96.5 99 17 130/66 96 11/10/16 11:50 97.0 66 17 130/60 98 CBC/BMP: 11/09/16 2149 11/09/16 1111 Lab Results Laboratory Tests Test 11/10/16 11/10/16 12:18 23:39 Activated Partial 43.6 SEC 31.0 SEC Thromboplast Time Microbiology Microbiology 11/10/16 Stool Occult Blood (CARLO) - Final, Complete HEMOCCULT NEGATIVE Physical Exam General General Appearance: Well Developed, Comfortable, Obese Eyes Eye Exam: Pupils Equal, Pupils Reactive Ears & Nose Ears & Nose Exam: Nasal Mucosa Estelle Throat Throat Exam: Oral Mucosa Estelle & Moist Neck Neck Exam: Neck Supple, Trachea Midline Pulmonary Resp Exam: Clear Bilaterally Cardiology CV Exam: Regular, Good Perfusion, Irregular, Arrhythmia Gastrointestinal/Abdomen GI Exam: Soft, Non-Tender, Bowel Sounds Present, Non-Distended Integumentary Skin Exam: Clear, Warm, Dry Extremeties Extremities Exam: No Edema, Pedal Pulses Palpable Neurologic Neuro Exam: Alert, Awake, Speech Clear, Moving All Extremities, No Focal Deficits Psychiatric Psych Exam: Appropriate Responses VTE Prophylaxis VTE Remarks Xarelto Assessment/Plan Problem List: (1) CVA (cerebral vascular accident) Plan: left parietal occipital (2) TIA (transient ischemic attack) (3) Hyperlipidemia (4) History of CVA (cerebrovascular accident) (5) Atrial fibrillation (6) HTN (hypertension) (7) Memory deficit Assessment/Plan 71-year-old male with history of prior CVA, atrial fibrillation, type 2 diabetes , hypertension hyperlipidemia. Patient presented to the emergency room with right upper and lower extremity weakness, fell to the floor. TIA, symptoms resolve, did not meet criteria for TPA. Patient with history of atrial fibrillation, was Xarelto, may have missed some doses. Acute CVA-left parietal occipital infarct. -Continue with neuro checks every 4 hours -off IVF, out of bed with assist. -neurology and card input appreciated MRI of the brain-left parietal infarct.. Ca --2-D echo done, EF 50-55%, CUS no stenosis. lipid profile results noted, continue statin -hemoglobin A1c 8.6, needs improved control dec. ASA to 81 mg po daily -off Heparin now, changed to Xarelto -PT, OT eval-recommend SNF -no more neuro changes, doing well. Continue with Xarelto. History of A. fib, heart rate control CHADs 2 score 3. Continue cardiac telemetry echo done -continue Xarelto Type 2 diabetes Accu-Cheks before meals and at bedtime with insulin therapy Hold metformin at this time Hemoglobin A1c 8.6, poorly control. Needs to lose weight Obesity -needs to lose weight, d/w pt and [employer] activity. Hyperlipidemia, stable Continue home medications in the morning -lipid profile done Hyperlipidemia, stable Continue statins Lipid profile done Memory deficit, possibly dementia, patient on Donezepil and prior CVA. Continue with Donezepil 10 mg by mouth daily at bedtime Xarelto for DVT prophylaxis SCDs for DVT prophylaxis CM for SNF vs [facility] Plan to discharge today, [facility] vs home with C, CM to find out of pt accepted at [facility] F/U cardiology, neurology, PCP Diet-hearth healthy Activity-as tolerated. D/W RN D/W pt D/W Dr. Martinez D/W CM This patient was seen by myself and Dr. Martinez, this note is written on his behalf Discharge Minutes: 45 Problem Qualifiers (1) CVA (cerebral vascular accident): (2) TIA (transient ischemic attack): Qualified Code: G45.9 - Transient cerebral ischemia, unspecified type (3) Hyperlipidemia: Qualified Code: E78.5 - Hyperlipidemia, unspecified hyperlipidemia type (4) Atrial fibrillation: Qualified Code: I48.91 - Atrial fibrillation, unspecified type (5) HTN (hypertension): Qualified Code: I10 - Essential hypertension Martha Hogan November 11, 2016 09:48
[2016-11-11] MEDS: PREGABALIN 75 MG CAP PO SCH (20:28)
[2016-11-11] MEDS: DONEPEZIL HCL 5 MG TAB PO SCH (20:28)
[2016-11-11] MEDS: ATORVASTATIN 40 MG TAB PO SCH (20:28)
[2016-11-12 04:00] VITALS: BP 137/83; PULSE 67; RESP 18; TEMP 95.9; O2SAT 98
[2016-11-12] MEDS: INSULIN ASPART SUPPLEMENTAL SCALE SQ SCH ×4 (06:26→20:46)
[2016-11-12 07:00] VITALS: PULSE 68
[2016-11-12 08:09] LABS: HEMATOCRIT 40.9 % (39.0-51.0); MEAN CELL VOLUME 84.3 FL (80.0-100.0); MEAN CORPUSCULAR HEMOGLOBIN 28.3 PG (27.0-34.0); MEAN CORPUSCULAR HGB CONC 33.6 % (32.0-36.0); PLATELET COUNT 135 TH/MM3 (150-450); RED BLOOD COUNT 4.86 MIL/MM3 (4.50-5.90); RED CELL DISTRIBUTION WIDTH 14.6 % (11.6-17.2); REVIEW FLAG FINAL; WHITE BLOOD COUNT 6.1 TH/MM3 (4.0-11.0)
[2016-11-12 08:20] VITALS: BP 141/66; PULSE 95; TEMP 97; O2SAT 97
[2016-11-12] MEDS: RIVAROXABAN 20 MG TAB PO SCH (09:27)
[2016-11-12] MEDS: SERTRALINE HCL 100 MG TAB PO SCH (09:27)
[2016-11-12] MEDS: ATENOLOL 25 MG TAB PO SCH (09:27)
[2016-11-12] MEDS: DIGOXIN 0.25 MG TAB PO SCH (09:27)
[2016-11-12] MEDS: glipiZIDE 5 MG TAB PO SCH ×2 (09:33→16:56)
--- NOTE | 2016-11-12 11:34 | HHI.PR ---
Subjective Subjective Remarks no neuro changes awake, oriented x 3 forgetful no fever no cp no sob has no complaints wants to go home, at [facility], she prefers that pt. go to rehab. Has been unsteady at home and fell recently Review of Systems Constitutional Constitutional Remarks 12 point ROS completed, unreliable Vitals/Results Intake & Output 11/11/16 11/11/16 11/12/16 15:00 23:00 07:00 # Voids 3 1 2 # Bowel Movements 2 Vital Signs Vital Signs Date Time Temp Pulse Resp B/P Pulse Ox O2 Delivery O2 Flow Rate FiO2 11/12/16 08:20 97.0 95 141/66 97 11/12/16 04:00 95.9 67 18 137/83 98 11/11/16 21:43 18 11/11/16 20:00 97.0 74 18 152/68 97 11/11/16 20:00 73 11/11/16 15:59 97.0 68 20 133/70 97 11/11/16 12:00 97.2 96 20 134/91 93 CBC/BMP: 11/12/16 0756 11/09/16 1111 Lab Results Laboratory Tests Test 11/12/16 07:56 White Blood Count 6.1 TH/MM3 Red Blood Count 4.86 MIL/MM3 Hemoglobin 13.8 GM/DL Hematocrit 40.9 % Mean Corpuscular Volume 84.3 FL Mean Corpuscular Hemoglobin 28.3 PG Mean Corpuscular Hemoglobin 33.6 % Concent Red Cell Distribution Width 14.6 % Platelet Count 135 TH/MM3 Mean Platelet Volume 10.4 FL Physical Exam General General Appearance: Well Developed, Comfortable, Obese Eyes Eye Exam: Pupils Equal, Pupils Reactive Ears & Nose Ears & Nose Exam: Nasal Mucosa [place] Throat Throat Exam: Oral Mucosa [place] & Moist Neck Neck Exam: Neck Supple, Trachea Midline Pulmonary Resp Exam: Clear Bilaterally Cardiology CV Exam: Regular, Good Perfusion, Irregular, Arrhythmia Gastrointestinal/Abdomen GI Exam: Soft, Non-Tender, Bowel Sounds Present, Non-Distended Integumentary Skin Exam: Clear, Warm, Dry Extremeties Extremities Exam: No Edema, Pedal Pulses Palpable Neurologic Neuro Exam: Alert, Awake, Speech Clear, Moving All Extremities, No Focal Deficits Psychiatric Psych Exam: Appropriate Responses VTE Prophylaxis VTE Remarks Xarelto Assessment/Plan Problem List: (1) CVA (cerebral vascular accident) Plan: left parietal occipital (2) TIA (transient ischemic attack) (3) Hyperlipidemia (4) History of CVA (cerebrovascular accident) (5) Atrial fibrillation (6) HTN (hypertension) (7) Memory deficit Assessment/Plan 71-year-old male with history of prior CVA, atrial fibrillation, type 2 diabetes , hypertension hyperlipidemia. Patient presented to the emergency room with right upper and lower extremity weakness, fell to the floor. TIA, symptoms resolve, did not meet criteria for TPA. Patient with history of atrial fibrillation, was Xarelto, may have missed some doses. Acute CVA-left parietal occipital infarct. -Continue with neuro checks every 4 hours -off IVF, out of bed with assist. -neurology and card input appreciated MRI of the brain-left parietal infarct.. Ca --2-D echo done, EF 50-55%, CUS no stenosis. lipid profile results noted, continue statin -hemoglobin A1c 8.6, needs improved control no ASA per neuro -off Heparin now, Conitnue Xarelto -PT, OT eval-recommend SNF -no more neuro changes, doing well. Continue with Xarelto. History of A. fib, heart rate control CHADs 2 score 3. Continue cardiac telemetry echo done -continue Xarelto Type 2 diabetes Accu-Cheks before meals and at bedtime with insulin therapy Hold metformin at this time Hemoglobin A1c 8.6, poorly control. Needs to lose weight Obesity -needs to lose weight, d/w pt and [employer] activity. Hyperlipidemia, stable Continue home medications in the morning -lipid profile done Hyperlipidemia, stable Continue statins Lipid profile done Memory deficit, possibly dementia, patient on Donezepil and prior CVA. Continue with Donezepil 10 mg by mouth daily at bedtime Xarelto for DVT prophylaxis SCDs for DVT prophylaxis CM for SNF vs CIR Discharge to CIR or SNF when arrangements made. Pt. stable to be discharged. D/W CM, insurance close on weekends, no authorization yet for for CIR, SNF, or [facility] F/U cardiology, neurology, PCP Diet-hearth healthy Activity-as tolerated. D/W RN D/W pt D/W Dr. Martinez D/W CM This patient was seen by myself and Dr. Martinez, this note is written on his behalf Problem Qualifiers (1) CVA (cerebral vascular accident): (2) TIA (transient ischemic attack): Qualified Code: G45.9 - Transient cerebral ischemia, unspecified type (3) Hyperlipidemia: Qualified Code: E78.5 - Hyperlipidemia, unspecified hyperlipidemia type (4) Atrial fibrillation: Qualified Code: I48.91 - Atrial fibrillation, unspecified type (5) HTN (hypertension): Qualified Code: I10 - Essential hypertension Martha Hogan November 12, 2016 11:34
[2016-11-12 12:00] VITALS: BP 147/68; PULSE 96; TEMP 98.5; O2SAT 99
[2016-11-12 15:55] VITALS: BP 135/77; PULSE 99; TEMP 96.5; O2SAT 98
[2016-11-12 20:00] VITALS: BP 144/72; PULSE 62; RESP 18; TEMP 97.4; O2SAT 96
[2016-11-12] MEDS: PREGABALIN 75 MG CAP PO SCH (20:45)
[2016-11-12] MEDS: ATORVASTATIN 40 MG TAB PO SCH (20:45)
[2016-11-12] MEDS: DONEPEZIL HCL 5 MG TAB PO SCH (20:45)
[2016-11-12] MEDS: SODIUM CHLORIDE 0.9% FLUSH 5 ML FLUSH IV FLUSH SCH (20:46)
[2016-11-13] VITALS: BP 145/70; PULSE 67; RESP 20; TEMP 95.6; O2SAT 97
[2016-11-13 04:00] VITALS: BP 133/85; PULSE 75; RESP 18; TEMP 96.6; O2SAT 98
[2016-11-13] MEDS: INSULIN ASPART SUPPLEMENTAL SCALE SQ SCH ×2 (06:37→14:34)
[2016-11-13 07:58] VITALS: BP 146/74; PULSE 76; RESP 20; TEMP 95.5; O2SAT 98
[2016-11-13] MEDS: DIGOXIN 0.25 MG TAB PO SCH (10:21)
[2016-11-13] MEDS: SERTRALINE HCL 100 MG TAB PO SCH (10:21)
[2016-11-13] MEDS: ATENOLOL 25 MG TAB PO SCH (10:22)
[2016-11-13] MEDS: RIVAROXABAN 20 MG TAB PO SCH (10:22)
[2016-11-13] MEDS: glipiZIDE 5 MG TAB PO SCH (10:22)
[2016-11-13] MEDS: SODIUM CHLORIDE 0.9% FLUSH 5 ML FLUSH IV FLUSH SCH (10:23)
[2016-11-13] MEDS ORDERED: XARE20TA PO (10:57)
--- NOTE | 2016-11-13 10:58 | HHI.DCPOC ---
Discharge Care Plan Diagnosis: (1) TIA (transient ischemic attack) (2) Hyperlipidemia (3) History of CVA (cerebrovascular accident) (4) Atrial fibrillation (5) HTN (hypertension) (6) Memory deficit (7) CVA (cerebral vascular accident) Your Health Problems Are: Difficulty with ADL Goals to Promote Your Health * To prevent worsening of your condition and complications * To maintain your health at the optimal level Directions to Meet Your Goals Take your medications as prescribed Follow your dietary instruction Follow activity as directed Keep your appointments as scheduled Take your immunizations and boosters as scheduled If your symptoms worsen call your PCP, if no PCP go to Urgent Care Center or Emergency Room Smoking is Dangerous to Your Health. Avoid second hand smoke Call the 24-hour hour crisis hotline for domestic abuse at Martha Hogan. [facility] November 13, 2016 10:58
--- NOTE | 2016-11-13 11:00 | HHI.PR ---
Subjective Subjective Remarks no neuro changes awake, oriented x 3 forgetful no fever no cp no sob wants to go home, no family at [facility] Review of Systems Constitutional Constitutional Remarks 12 point ROS completed, unreliable Vitals/Results Intake & Output 11/12/16 11/12/16 11/13/16 14:59 22:59 06:59 Intake Total 240 ml 1080 ml 480 ml Output Total 600 ml Balance 240 ml 480 ml 480 ml Intake Oral 240 ml 1080 ml 480 ml Output Urine Total 600 ml # Voids 2 3 # Bowel Movements 1 Vital Signs Vital Signs Date Time Temp Pulse Resp B/P Pulse Ox O2 Delivery O2 Flow Rate FiO2 11/13/16 07:58 95.5 76 20 146/74 98 11/13/16 04:00 96.6 75 18 133/85 98 11/13/16 00:00 95.6 67 20 145/70 97 11/12/16 21:44 18 11/12/16 20:35 21 11/12/16 20:00 97.4 62 18 144/72 96 11/12/16 15:55 96.5 99 135/77 98 11/12/16 12:00 98.5 96 147/68 99 CBC/BMP: 11/12/16 0756 11/09/16 1111 Physical Exam General General Appearance: Well Developed, Comfortable, Obese Eyes Eye Exam: Pupils Equal, Pupils Reactive Ears & Nose Ears & Nose Exam: Nasal Mucosa [place] Throat Throat Exam: Oral Mucosa [place] & Moist Neck Neck Exam: Neck Supple, Trachea Midline Pulmonary Resp Exam: Clear Bilaterally Cardiology CV Exam: Regular, Good Perfusion, Irregular, Arrhythmia Gastrointestinal/Abdomen GI Exam: Soft, Non-Tender, Bowel Sounds Present, Non-Distended Integumentary Skin Exam: Clear, Warm, Dry Extremeties Extremities Exam: No Edema, Pedal Pulses Palpable Neurologic Neuro Exam: Alert, Awake, Speech Clear, Moving All Extremities, No Focal Deficits Psychiatric Psych Exam: Appropriate Responses VTE Prophylaxis VTE Remarks Xarelto Assessment/Plan Problem List: (1) CVA (cerebral vascular accident) Plan: left parietal occipital (2) TIA (transient ischemic attack) (3) Hyperlipidemia (4) History of CVA (cerebrovascular accident) (5) Atrial fibrillation (6) HTN (hypertension) (7) Memory deficit Assessment/Plan 71-year-old male with history of prior CVA, atrial fibrillation, type 2 diabetes , hypertension hyperlipidemia. Patient presented to the emergency room with right upper and lower extremity weakness, fell to the floor. TIA, symptoms resolve, did not meet criteria for TPA. Patient with history of atrial fibrillation, was Xarelto, may have missed some doses. Acute CVA-left parietal occipital infarct. -Continue with neuro checks every 4 hours -off IVF, out of bed with assist. -neurology and card input appreciated MRI of the brain-left parietal infarct.. Ca --2-D echo done, EF 50-55%, CUS no stenosis. lipid profile results noted, continue statin -hemoglobin A1c 8.6, needs improved control no ASA per neuro -off Heparin now, Conitnue Xarelto -PT, OT eval-recommend SNF -no more neuro changes, doing well. Continue with Xarelto. History of A. fib, heart rate control CHADs 2 score 3. Continue cardiac telemetry echo done -continue Xarelto Type 2 diabetes Accu-Cheks before meals and at bedtime with insulin therapy Hold metformin at this time Hemoglobin A1c 8.6, poorly control. Needs to lose weight Obesity -needs to lose weight, d/w pt and [employer] activity. Hyperlipidemia, stable Continue home medications in the morning -lipid profile done Hyperlipidemia, stable Continue statins Lipid profile done Memory deficit, possibly dementia, patient on Donezepil and prior CVA. Continue with Donezepil 10 mg by mouth daily at bedtime Xarelto for DVT prophylaxis SCDs for DVT prophylaxis CM for SNF vs CIR Discharge to CIR or SNF when arrangements made. Pt. stable to be discharged. D/W CM, insurance close on weekends, no authorization yet for for CIR, SNF, or [facility] CIR approval pending F/U cardiology, neurology, PCP Diet-hearth healthy Activity-as tolerated. D/W RN D/W pt D/W Dr. Pham D/W CM This patient was seen by myself and , this note is written on his behalf Discharge Minutes: 45 Problem Qualifiers (1) CVA (cerebral vascular accident): (2) TIA (transient ischemic attack): Qualified Code: G45.9 - Transient cerebral ischemia, unspecified type (3) Hyperlipidemia: Qualified Code: E78.5 - Hyperlipidemia, unspecified hyperlipidemia type (4) Atrial fibrillation: Qualified Code: I48.91 - Atrial fibrillation, unspecified type (5) HTN (hypertension): Qualified Code: I10 - Essential hypertension Martha Hogan November 13, 2016 11:00
--- NOTE | 2016-11-13 11:01 | HHI.DS ---
Discharge Summary Admission Date November 09, 2016 at 13:57 Discharge Date: November 13, 2016 Admitting Diagnosis TIA (1) CVA (cerebral vascular accident) (2) History of CVA (cerebrovascular accident) (3) Hyperlipidemia (4) HTN (hypertension) (5) Memory deficit (6) Atrial fibrillation CBC/BMP: 11/12/16 0756 11/09/16 1111 Significant Findings Laboratory Tests Test 11/10/16 11/10/16 11/12/16 12:18 23:39 07:56 Activated Partial 43.6 SEC 31.0 SEC Thromboplast Time (24.3-30.1) (24.3-30.1) Platelet Count 135 TH/MM3 (150-450) Imaging Last Impressions Head CT 11/09/16 1045 Signed Impressions: Service Date/Time: October 11:51 - CONCLUSION: 1. No evidence of acute intracranial pathology. No masses are identified. 2. 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 Mild cardiomegaly without acute cardiopulmonary disease. 2. Suspected old trauma involving the proximal left humerus. Nestor Fields Jr., MD Head Magnetic Resonance Angiography 11/09/16 0000 Signed Impressions: Service Date/Time: October 20:23 - CONCLUSION: Atherosclerotic intracranial vascular disease otherwise negative. Marino Henley MD [facility] Carotid Artery Ultrasound 11/09/16 0000 Signed Impressions: Service Date/Time: October 14:43 - CONCLUSION: Normal examination. 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 Marino Henley MD [facility] Hospital Course This is a 71-year-old male with a history hypertension, diabetes, atrial fibrillation, hyperlipidemia, CVA, memory deficit possibly dementia. Patient presented to the emergency room with complaint of weakness to right upper and right lower extremity lack of coordination. Patient is a poor historian, patient is forgetful and requesting that I speak to his . No other family is at bedside. Per ER report and patient, patient woke up between 5 and 6 AM, he states that his right leg gave out in his right arm felt limp. He went to get up and try to hold onto a chair and fell to the ground. He denies any numbness tingling, no speech difficulty, no headache, double vision. His only complaint at this time is left-sided rib pain. He's had a CVA in the past but does not have any deficit. He has underlying history of atrial fibrillation, not on any anticoagulation. 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 Patient was evaluated in the emergency room, laboratory workup was essentially unremarkable. CT of the head was negative other than old CVA. Last Impressions Head CT 11/09/16 1045 Signed Impressions: Service Date/Time: October 11:51 - CONCLUSION: 1. No evidence of acute intracranial pathology. No masses are identified. 2. 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 Mild cardiomegaly without acute cardiopulmonary disease. 2. Suspected old trauma involving the proximal left humerus. Nestor Fields Jr., MD Carotid Artery Ultrasound 11/09/16 0000 Signed Impressions: Service Date/Time: October 14:43 - CONCLUSION: Normal examination. Geronimo Black MD Patient was given aspirin. Was evaluated in emergency room, he felt that his right hand was still not very coordinated. He denied any chest pain, shortness of breath, recent fever, chills. Indicated he had been doing well otherwise. Patient was admitted for further evaluation and treatment for: (1) CVA (cerebral vascular accident) Plan: left parietal occipital (2) TIA (transient ischemic attack) (3) Hyperlipidemia (4) History of CVA (cerebrovascular accident) (5) Atrial fibrillation (6) HTN (hypertension) (7) Memory deficit Assessment/Plan 71-year-old male with history of prior CVA, atrial fibrillation, type 2 diabetes , hypertension hyperlipidemia. Patient presented to the emergency room with right upper and lower extremity weakness, fell to the floor. Initially admitted for TIA, symptoms did resolve, did not meet criteria for TPA. Patient with history of atrial fibrillation, was on Xarelto, may have missed some doses. Brain MRI confirmed Acute CVA-left parietal occipital infarct. -put on neuro checks, IV given, bedrest and permissive HTN for 24 hours. -neuro work up done, confirmed stroke -neurology evaluated, recommended card input for anticoagulation. -initially put on heparin, which was later dc's. Restarted on Xarelto. --2-D echo done, EF 50-55%, CUS no stenosis. lipid profile results noted, continue statin -hemoglobin A1c 8.6, needs improved control no ASA per neuro --PT, OT eval-recommend SNF -no more neuro changes, doing well. Continue with Xarelto. History of A. fib, heart rate control CHADs 2 score 3. Continued cardiac telemetry echo done -continue Xarelto Type 2 diabetes Accu-Cheks before meals and at bedtime with insulin therapy Held metformin initially. Hemoglobin A1c 8.6, poorly control. Needs to lose weight Obesity -needs to lose weight, d/w pt and [employer] activity. HTN Continue home medications Hyperlipidemia, stable Continue statins Lipid profile done Memory deficit, possibly dementia, patient on Donezepil and prior CVA. Continue with Donezepil 10 mg by mouth daily at bedtime Xarelto for DVT prophylaxis SCDs for DVT prophylaxis CM for SNF vs CIR Pt. improved, cleared for dc Discharged to [facility] Instructed to follow up with: F/U cardiology, neurology, PCP Diet-hearth healthy Activity-as tolerated. Pt Condition on Discharge: Stable Discharge Disposition: Rehab Inpatient Discharge Instructions DIET: Follow Instructions for: Heart Healthy Diet, Diabetic Diet Activities you can perform: Weight Bearing as Rose Marie Follow up Referrals: Cardiology Neurology PCP Follow-up New Medications: Rivaroxaban (Xarelto) 20 Mg Tab 20 MG PO DAILY Stroke Prevention #30 Ref 0 TAB Continued Medications: Atenolol (Atenolol) 25 Mg Tab 25 MG PO DAILY Blood Pressure Management #30 TAB Atorvastatin (Atorvastatin) 40 Mg Tab 40 MG PO HS Cholesterol Management #30 Ref 0 TAB Digoxin (Digoxin) 0.25 Mg Tab 0.25 MG PO DAILY Regulate Heart Beat #30 Ref 0 TAB Donepezil (Donepezil) 10 Mg Tab 10 MG PO HS Dementia #30 Ref 0 TAB Empagliflozin (Jardiance) 25 Mg Tab 25 MG PO DAILY Blood Sugar Management #30 Ref 0 TAB Ferrous Sulfate (Ferrous Sulfate) 325 Mg Tab 325 MG PO DAILY Nutritional Supplement #30 Ref 0 TAB Jennifer (Zingiber Officinalis) (Jennifer Root) 550 Mg Cap 550 MG PO DAILY Glipizide ER (Glipizide XL) 5 Mg Hilary 5 MG PO DAILY Take with breakfast or first main meal of the day Blood Sugar Management #30 Ref 0 TAB Liraglutide Inj (Victoza Inj) 18 Mg/3 Ml Pen 0.6 MG SQ DAILY #1 Ref 0 PEN Metformin (Metformin) 1,000 Mg Tab 1000 MG PO BID With meals Blood Sugar Management #60 Ref 0 TAB Pregabalin (Lyrica) 150 Mg Cap 150 MG PO #60 Ref 0 CAP Sertraline (Sertraline) 100 Mg Tab 100 MG PO DAILY #30 Ref 0 TAB ([Multivitamin Silver]) 1 PO DAILY Discontinued Medications: Pregabalin (Lyrica) 100 Mg Cap 100 MG PO #60 Ref 0 CAP Martha Hogan November 13, 2016 11:01
[2016-11-13 12:54] VITALS: BP 131/77; PULSE 72; RESP 20; TEMP 95.9; O2SAT 95
[2016-11-13 15:37] VITALS: BP 146/68; PULSE 86; RESP 20; TEMP 96.2; O2SAT 96
--- NOTE | 2016-11-13 16:03 | PD.CARD.PN ---
Subjective Subjective Remarks No CO or SOB, feels fine Objective Medications Current Medications Medications (Trade) Dose Ordered Sig/Soto Route Start Time Stop Time Status Last Admin (Tylenol) 650 mg Q4H PRN PO 11/09/16 14:00 (Zofran Inj) 4 mg Q6H PRN IVP 11/09/16 14:00 (Narcan Inj) 0.4 mg UNSCH PRN IV 11/09/16 14:00 (Vasotec Inj) 1.25 mg Q4H PRN IV 11/09/16 14:00 (Tenormin) 25 mg DAILY PO 11/10/16 09:00 11/13/16 10:22 (Lipitor) 40 mg HS PO 11/09/16 21:00 11/12/16 20:45 (Lanoxin) 0.25 mg DAILY PO 11/10/16 09:00 11/13/16 10:21 (Aricept) 10 mg HS PO 11/09/16 21:00 11/12/16 20:45 (Zoloft) 100 mg DAILY PO 11/10/16 09:00 11/13/16 10:21 (Glucotrol) 2.5 mg BID@08,17 PO 11/10/16 08:00 11/13/16 10:22 (Pill Splitter) 1 ea UNSCH PRN OTHER 11/10/16 09:00 (NS Flush) 2 ml BID IV FLUSH 11/09/16 21:00 11/13/16 10:23 (NS Flush) 2 ml UNSCH PRN IV FLUSH 11/09/16 17:15 (NovoLOG SUPPLEMENTAL SCALE) 1 ACHS SQ 11/09/16 21:00 11/13/16 14:34 (D50w (Vial) Inj) 50 ml UNSCH PRN IV PUSH 11/09/16 17:15 (Glucagon Inj) 1 mg UNSCH PRN OTHER 11/09/16 17:15 (Lyrica) 150 mg HS PO 11/10/16 00:00 11/12/16 20:45 (Xarelto) 20 mg DAILY PO 11/10/16 13:30 11/13/16 10:22 Vital Signs / I&O Vital Signs Date Time Temp Pulse Resp B/P Pulse Ox O2 Delivery O2 Flow Rate FiO2 11/13/16 15:37 96.2 86 20 146/68 96 11/13/16 12:54 95.9 72 20 131/77 95 11/13/16 07:58 95.5 76 20 146/74 98 11/13/16 04:00 96.6 75 18 133/85 98 11/13/16 00:00 95.6 67 20 145/70 97 11/12/16 21:44 18 11/12/16 20:35 21 11/12/16 20:00 97.4 62 18 144/72 96 I/O 11/12/16 11/12/16 11/12/16 11/13/16 11/13/16 11/13/16 07:00 15:00 23:00 07:00 15:00 23:00 Intake Total 240 ml 1080 ml 480 ml 960 ml Output Total 600 ml Balance 240 ml 480 ml 480 ml 960 ml Intake Oral 240 ml 1080 ml 480 ml 960 ml Output Urine Total 600 ml # Voids 2 2 3 # Bowel Movements 1 Physical Exam GENERAL: In NAD SKIN: Warm and dry. HEAD: Normocephalic. EYES: No scleral icterus. No injection or drainage. NECK: Supple, trachea midline. No JVD or lymphadenopathy. CARDIOVASCULAR: Irregular rate and rhythm without murmurs, gallops, or rubs. RESPIRATORY: Breath sounds equal bilaterally. No accessory muscle use. GASTROINTESTINAL: Abdomen soft, non-tender, nondistended. MUSCULOSKELETAL: No cyanosis, or edema. Laboratory Laboratory Tests Test 11/09/16 11/09/16 11/10/16 11/10/16 11:11 20:03 03:51 23:39 Neutrophils (%) (Auto) 68.9 % Lymphocytes (%) (Auto) 18.4 % Monocytes (%) (Auto) 9.5 % Eosinophils (%) (Auto) 2.6 % Basophils (%) (Auto) 0.6 % Neutrophils # (Auto) 5.8 TH/MM3 Lymphocytes # (Auto) 1.5 TH/MM3 Monocytes # (Auto) 0.8 TH/MM3 Eosinophils # (Auto) 0.2 TH/MM3 Basophils # (Auto) 0.1 TH/MM3 CBC Comment DIFF FINAL Differential Comment Sodium Level 142 MEQ/L Potassium Level 5.1 MEQ/L Chloride Level 106 MEQ/L Carbon Dioxide Level 28.1 MEQ/L Anion Gap 8 MEQ/L Blood Urea Nitrogen 19 MG/DL Creatinine 0.87 MG/DL Estimat Glomerular Filtration 87 ML/MIN Rate Random Glucose 175 MG/DL Hemoglobin A1c 8.4 % Calcium Level 9.1 MG/DL Prothrombin Time 13.4 SEC Prothromb Time International 1.2 RATIO Ratio Triglycerides Level 195 MG/DL Cholesterol Level 82 MG/DL LDL Cholesterol 13 MG/DL HDL Cholesterol 29.6 MG/DL Cholesterol/HDL Ratio 2.77 RATIO Activated Partial 31.0 SEC Thromboplast Time Test 11/12/16 07:56 White Blood Count 6.1 TH/MM3 Red Blood Count 4.86 MIL/MM3 Hemoglobin 13.8 GM/DL Hematocrit 40.9 % Mean Corpuscular Volume 84.3 FL Mean Corpuscular Hemoglobin 28.3 PG Mean Corpuscular Hemoglobin 33.6 % Concent Red Cell Distribution Width 14.6 % Platelet Count 135 TH/MM3 Mean Platelet Volume 10.4 FL Imaging Last Impressions Head CT 11/09/16 1045 Signed Impressions: Service Date/Time: October 11:51 - CONCLUSION: 1. No evidence of acute intracranial pathology. No masses are identified. 2. 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 Mild cardiomegaly without acute cardiopulmonary disease. 2. Suspected old trauma involving the proximal left humerus. Nestor Fields Jr., MD Head Magnetic Resonance Angiography 11/09/16 0000 Signed Impressions: Service Date/Time: October 20:23 - CONCLUSION: Atherosclerotic intracranial vascular disease otherwise negative. Marino Henley MD FACR Carotid Artery Ultrasound 11/09/16 0000 Signed Impressions: Service Date/Time: October 14:43 - CONCLUSION: Normal examination. 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 Marino Henley MD FACR Assessment and Plan Problem List: (1) TIA (transient ischemic attack) (2) Atrial fibrillation (3) HTN (hypertension) (4) Hyperlipidemia Assessment and Plan No new cardiac issues. Continue current program including anticoagulation with Xarelto. Continue rate control of atrial fibrillation. Increase activity. PT. Discharge to rehab as planned. Problem Qualifiers (1) TIA (transient ischemic attack): Qualified Code: G45.9 - Transient cerebral ischemia, unspecified type (2) Atrial fibrillation: Qualified Code: I48.91 - Atrial fibrillation, unspecified type (3) HTN (hypertension): Qualified Code: I10 - Essential hypertension (4) Hyperlipidemia: Qualified Code: E78.5 - Hyperlipidemia, unspecified hyperlipidemia type Neena Cleveland MD November 13, 2016 16:03
[2016-11-22] MEDS ORDERED: LYRI150C PO (08:42)
[2016-11-22] MEDS ORDERED: DIGO0.25 PO (08:42)
[2016-11-22] MEDS ORDERED: ATEN25TA PO (08:42)
[2016-11-22] MEDS ORDERED: XARE20TA PO (08:42)
[2016-11-22] MEDS ORDERED: DONE10TA7 PO (08:42)
[2016-11-22] MEDS ORDERED: GLIP5 PO (08:42)
[2016-11-22] MEDS ORDERED: EMPA1TAB3 PO (08:42)
[2016-11-22] MEDS ORDERED: METF1000 PO (08:42)
[2016-11-22] MEDS ORDERED: SERT-129 PO (08:42)
[2016-11-22] MEDS ORDERED: ATOR40TA16 PO (08:42)
== END 2016-11-13 16:44 | DRG 69 ==
LOC: NEPC 10:01 → NEDA 12:58 → OBSVTOIN 13:57 → N05A 17:20
PROVIDERS: ADMIT Specialist; ATTEND Specialist
DX: G45.9 Transient cerebral ischemic attack, unspecified (principal); I48.2 Chronic atrial fibrillation; F03.90 Unspecified dementia, unspecified severity, without behavioral disturbance, psychotic disturbance, mood disturbance, and anxiety; E11.9 Type 2 diabetes mellitus without complications; I10 Essential (primary) hypertension; F41.9 Anxiety disorder, unspecified; H91.90 Unspecified hearing loss, unspecified ear; E78.5 Hyperlipidemia, unspecified; Z86.73 Personal history of transient ischemic attack (TIA), and cerebral infarction without residual deficits; Z79.84 Long term (current) use of oral hypoglycemic drugs
CPT/HCPCS: 70450; 70544; 70553; 71010; 80048; 80061; 82272; 82948; 83036; 85025; 85027; 85610; 85730; 93005; 93306; 93880; A9579; J1644; J1815; J7030